=== PATIENT | male | born 2000 | race Caucasian/White ===

== ENCOUNTER 2024-06-26 10:17 | Emergency (ER) | payer SELFPAY ==
[~2024-06-26] VITALS: Ht 188 cm; Wt 77.2 kg
[2024-06-26 11:01] VITALS: PULSE 56; RESP 16; TEMP 98.5; O2SAT 99
[2024-06-26] MEDS ORDERED: CEPHALEXIN 500 MG CAP PO SCH (11:15)
[2024-06-26] MEDS ORDERED: AMOXICILLIN500 MG PO (11:21)
[2024-06-26] MEDS ORDERED: IBUPROFEN600 MG PO (11:21)
[2024-06-26] MEDS: CEPHALEXIN MONOHYDRATE 250 MG CAP PO SCH (11:39)
[2024-06-26] MEDS: IBUPROFEN 600 MG TAB PO STA (11:55)
== END 2024-06-26 11:45 | disposition home or self-care (01) ==
LOC: FSED 10:56
DX: K08.89 Other specified disorders of teeth and supporting structures (principal)
CPT/HCPCS: 99283